=== PATIENT | male | born 1965 | race American Indian/Alaskan Native ===

== ENCOUNTER 2017-12-14 11:11 | Day surgery (SDC) | payer BC ==
[~2017-12-14 11:11] MED LIST: AK-Dilate ONE; IOPIDINE ONE; MYDRIACYL ONE
[2017-12-14] MEDS ORDERED: IOPIDINE OD ONE (12:10)
[2017-12-14] MEDS ORDERED: AK-Dilate OD ONE (12:10)
[2017-12-14] MEDS ORDERED: MYDRIACYL OD ONE (12:11)
[2017-12-14 14:18] VITALS: BP 175/95
== END 2017-12-14 14:03 | disposition home or self-care (01) ==
LOC: OR 11:11
PROVIDERS: ATTEND Specialist
DX: H26.492 Other secondary cataract, left eye (principal); E78.00 Pure hypercholesterolemia, unspecified; I10 Essential (primary) hypertension; K21.9 Gastro-esophageal reflux disease without esophagitis; Z98.890 Other specified postprocedural states; Z98.42 Cataract extraction status, left eye; Z98.41 Cataract extraction status, right eye
CPT/HCPCS: 82962